=== PATIENT | male | born 1955 | race Caucasian/White ===

== ENCOUNTER 2018-02-08 14:27 | Emergency (ER) | payer OTHER ==
[2018-02-08] MEDS ORDERED: TETANUS & DIPHTHERIA TOX,ADULT 0.5 ML VIAL ONE (15:55)
--- NOTE | 2018-02-08 16:10 | RAD REPORT ---
EXAM DESCRIPTION: CT - CTFB CLINICAL HISTORY: Trauma to face with pain and injury COMPARISON: None. TECHNIQUE: Axial 2 mm thick images of the face were obtained with sagittal and coronal reconstructio n images. All CT scans are performed using dose optimization technique as appropriate and may include automated exposure control or mA/KV adjustment according to patient size. FINDINGS: Mildly comminuted nasal bone fracture is identified.The mandible is intact. The globes and orbital contents are grossly unremarkable.Mild bilateral polypoid mucosal thickening i nvolving both maxillary antrum. Small amount of fluid is also noted left maxillary antrum. IMPRESSION: Mildly comminuted nasal bone fracture.
--- NOTE | 2018-02-08 16:46 | EDPHYS ---
Physician Documentation [facility] Name: Jamie Lewis Age: 63 yrs Sex: Male : 1955 Arrival Date: 02/08/2018 Time: 14:32 Bed 10 Private MD: ED Physician Misha Chang HPI: 02/08 16:47 This 63 yrs old Male presents to ER via Ambulatory with complaints of Facial kb Injury, Laceration To Leg. 16:47 The patient or guardian reports abrasion, injury, pain, swelling. The complaints affect kb the nose. Context [place]: [place] resulted from a fall, while walking. Onset: The symptoms/episode began/occurred just prior to arrival. Associated signs and symptoms: Loss of consciousness: This patient did not experience any loss of consciousness. Pertinent positives: facial abrasions, nosebleed, nose pain. Severity of symptoms: At their worst the symptoms were moderate, in the emergency department the symptoms are unchanged. The patient has not experienced similar symptoms in the past. The patient has not recently seen a physician. Pt [place] and slipped on wet rock, fell and hit face on ground. Reports abrasions to face and right gillespie, nose pain, swelling and bleeding. Denies LOC. Historical: - Allergies: 14:43 No Known Allergies; la1 - PMHx: 14:43 Hypertension; la1 - Immunization history:: Adult Immunizations up to date. - Social history:: Smoking status: Patient/guardian denies using tobacco. ROS: 16:47 Constitutional: Negative for fever, chills, and weight loss, Neck: Negative for injury, kb pain, and swelling, Cardiovascular: Negative for chest pain, palpitations, and edema, Respiratory: Negative for shortness of breath, cough, wheezing, and pleuritic chest pain, Abdomen/GI: Negative for abdominal pain, nausea, vomiting, diarrhea, and constipation, MS/Extremity: Negative for injury and deformity, Neuro: Negative for headache, weakness, numbness, tingling, and seizure. 16:47 ENT: Positive for nose bleed. 16:47 Skin: Positive for abrasion(s), ecchymosis, swelling, of the face and right gillespie. Exam: 16:47 Constitutional: This is a well developed, well nourished patient who is awake, alert, kb and in no acute distress. Chest/axilla: Normal chest wall appearance and motion. Nontender with no deformity. No lesions are appreciated. Cardiovascular: Regular rate and rhythm with a normal S1 and S2. No gallops, murmurs, or rubs. Normal PMI, no JVD. No pulse deficits. Respiratory: Lungs have equal breath sounds bilaterally, clear to auscultation and percussion. No rales, rhonchi or wheezes noted. No increased work of breathing, no retractions or nasal flaring. Abdomen/GI: Soft, non-tender, with normal bowel sounds. No distension or tympany. No guarding or rebound. No evidence of tenderness throughout. MS/ Extremity: Pulses equal, no cyanosis. Neurovascular intact. Full, normal range of motion. Neuro: Awake and alert, GCS 15, oriented to person, place, time, and situation. Cranial nerves II-XII grossly intact. Motor strength 5/5 in all extremities. Sensory grossly intact. Cerebellar exam normal. Normal gait. 16:47 Head/face: Noted is no obvious of injury or deformity except abrasion(s), that are mild, of the forehead, nose and chin, contusion, that is superficial, of the nose, ecchymosis, that is moderate, of the nose, swelling, that is mild, of the nose. 16:47 ENT: Nose: clotted blood, in both nares. 16:47 Skin: injury, abrasion(s), moderate sized abrasion noted, of the right gillespie. Vital Signs: 14:43 BP 115 / 90; Pulse 75; Resp 19; Temp 98.5(TE); Pulse Ox 100% on R/A; Weight 83.91 kg; la1 Height 6 ft. 0 in. (182.88 cm); 17:10 BP 118 / 64; Pulse 81; Resp 15; Pulse Ox 100% on R/A; la1 14:43 Body Mass Index 25.09 (83.91 kg, 182.88 cm) la1 [place] Coma Score: 16:45 Eye Response: spontaneous(4). Verbal Response: oriented(5). Motor Response: obeys kb commands(6). Total: 15. 16:47 Eye Response: spontaneous(4). Verbal Response: oriented(5). Motor Response: obeys kb commands(6). Total: 15. MDM: 15:30 Patient medically screened. [facility] 16:45 Data reviewed: vital signs, nurses notes. Data interpreted: Pulse oximetry: on room air kb is 100 %. Interpretation: normal. Counseling: I had a detailed discussion with the patient and/or guardian regarding: the historical points, exam findings, and any diagnostic results supporting the discharge/admit diagnosis, radiology results, the need for outpatient follow up, an ENT specialist, to return to the emergency department if symptoms worsen or persist or if there are any questions or concerns that arise at home. 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 Lot #: [id number]. } Route: IM; Site: right deltoid; 17:10 Follow up: Response: No adverse reaction la1 17:10 Drug: Augmentin 875 mg Route: PO; la1 17:10 Follow up: Response: Medication administered at discharge. la1 Disposition: 02/09 08:59 Co-signature as Attending Physician, Misha Chang MD I agree with the assessment and [facility] plan of care. Disposition: 02/08/18 16:46 Discharged to Home. Impression: Fracture of nasal bones. - Condition is Stable. - Discharge Instructions: Nasal Fracture, [id number]. - Prescriptions for Augmentin 875- 125 mg Oral Tablet - take 1 tablet by ORAL route every 12 hours for 7 days; 14 tablet. - Medication Reconciliation Form, Thank You Letter, Antibiotic Education, Prescription Opioid Use form. - Follow up: Emergency Department; When: As needed; Reason: Worsening of condition. Follow up: Private Physician; When: 2 - 3 days; Reason: Recheck today's complaints, Continuance of care, Re-evaluation by your physician. Follow up: Yancy Bruner MD; When: 1 week; Reason: Recheck today's complaints. Signatures: Dispatcher [employer] EDDonna Franco, ALISSA-Joce MAXWELL-Ckb Misha Chang MD MD cha Smirch, Shelby, RN RN ss Alexi Dash RN RN la1
--- NOTE | 2018-02-08 16:46 | ER ---
Nurse's Notes [facility] Name: Jamie Lewis Age: 63 yrs Sex: Male : 1955 Arrival Date: 02/08/2018 Time: 14:32 Bed 10 Private MD: Diagnosis: Fracture of nasal bones Presentation: 02/08 14:42 Presenting complaint: Patient states: [place] and hit my la1 face/nose and right leg. Pt denies LOC, states he is not on blood thinners. No acute neuro deficits noted. Transition of care: patient was not received from another setting of care. Onset of symptoms was February 08, 2018. Initial Sepsis Screen: Does the patient meet any 2 criteria? No. Patient's initial sepsis screen is negative. Does the patient have a suspected source of infection? No. Patient's initial sepsis screen is negative. Care prior to arrival: None. 14:42 Method Of Arrival: Ambulatory la1 14:42 Acuity: KARLOS 4 la1 Triage Assessment: 17:11 General: Appears. la1 Historical: - Allergies: 14:43 No Known Allergies; la1 - PMHx: 14:43 Hypertension; la1 - Immunization history:: Adult Immunizations up to date. - Social history:: Smoking status: Patient/guardian denies using tobacco. Screenin:19 Abuse screen: Denies threats or abuse. Denies injuries from another. Nutritional ss screening: No deficits noted. Tuberculosis screening: Never had TB. Fall Risk Fall in past 12 months (25 points). No secondary diagnosis (0 pts). No IV (0 pts). Ambulatory Aid- None/Bed Rest/Nurse Assist (0 pts). Gait- Normal/Bed Rest/Wheelchair (0 pts) Mental Status- Oriented to own ability (0 pts). Assessment: 16:19 Reassessment: cleaned patients wounds with NS and Hibiclens. pt tolerated well, is ss grateful for care received. Vital Signs: 14:43 BP 115 / 90; Pulse 75; Resp 19; Temp 98.5(TE); Pulse Ox 100% on R/A; Weight 83.91 kg; la1 Height 6 ft. 0 in. (182.88 cm); 17:10 BP 118 / 64; Pulse 81; Resp 15; Pulse Ox 100% on R/A; la1 14:43 Body Mass Index 25.09 (83.91 kg, 182.88 cm) la1 [place] Coma Score: 16:45 Eye Response: spontaneous(4). Verbal Response: oriented(5). Motor Response: obeys kb commands(6). Total: 15. 16:47 Eye Response: spontaneous(4). Verbal Response: oriented(5). Motor Response: obeys kb commands(6). Total: 15. ED Course: 14:32 Patient arrived in ED. as 14:43 Triage completed. la1 14:43 Arm band placed on left wrist. la1 15:28 Donna Palacio FNP-C is PHCP. kb 15:28 Misha Chang MD is Attending Physician. kb 15:41 Lavonne Pattesron, RUPINDER is Primary Nurse. ss 15:56 CT completed. Patient moved to CT via wheelchair. Patient moved back from CT. cw1 15:58 Facial Bones W/O Con CT In Process Unspecified. EDMS 16:19 Patient has correct armband on for positive identification. Bed in low position. Call ss light in reach. 16:47 Yancy Bruner MD is Referral Physician. 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 Lot #: [id number]. } Route: IM; Site: right deltoid; 17:10 Follow up: Response: No adverse reaction la1 17:10 Drug: Augmentin 875 mg Route: PO; la1 17:10 Follow up: Response: Medication administered at discharge. la1 Outcome: 16:46 Discharge ordered by . kb 17:11 Discharged to la1 17:11 Condition: stable 17:11 Discharge instructions given to patient, Instructed on discharge instructions, follow up and referral plans. medication usage, Demonstrated understanding of instructions, follow-up care, medications, Prescriptions given X 1. 17:11 Patient left the ED. la1 Signatures: Dispatcher [employer] EDMS Donna Palacio FNP-C FNP-Ckb Martinez, Amelia as Smirch, Shelby, Regina Enrique RN cw Alexi Dash RN RN la
[2018-02-08] MEDS ORDERED: AMOX/K CLAV 875 MG TAB ONE (17:05)
== END 2018-02-08 17:11 | disposition home or self-care (01) ==
LOC: ER 14:27
DX: S02.2XXA Fracture of nasal bones, initial encounter for closed fracture (principal); S80.811A Abrasion, right lower leg, initial encounter; I10 Essential (primary) hypertension; W18.39XA Other fall on same level, initial encounter; Y93.01 Activity, walking, marching and hiking; Y92.832 Beach as the place of occurrence of the external cause; Y99.8 Other external cause status
CPT/HCPCS: 70486; 76377; 90714; 99284